=== PATIENT | female | born 2000 | race Caucasian/White ===

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

== ENCOUNTER 2019-04-06 04:38 | Emergency (ER) | payer BC ==
[2019-04-06] MEDS ORDERED: Albuterol/Ipratropium 3.0-0.5 MG/3 ML Neb Soln NEB ONE (04:59)
[2019-04-06] MEDS ORDERED: Albuterol/Ipratropium 3.0-0.5 MG/3 ML Neb Soln ONE (05:01)
--- NOTE | 2019-04-06 05:07 | EDM.PDOC ---
ED HPI GENERAL MEDICAL PROBLEM - General Chief Complaint: ENT Problem Stated Complaint: DIZZINESS Time Seen by Provider: 04/06/19 04:40 - History of Present Illness INITIAL COMMENTS - FREE TEXT/NARRATIVE: HISTORY AND PHYSICAL: History of present illness: The patient is a 18-year-old female with no significant past medical history but who does smoke cigarettes and presents with a one-week history of cough occasionally productive of phlegm sinus drainage and congestion without fever and right ear pain that started this evening. She says that at the beginning of her symptoms she did have a sore throat but that went away and the cough and congestion continued. She has not taken anything specific to dry out her sinuses but is been taking cold preps such as NyQuil DayQuil and Mucinex. She has been eating and drinking normally and has no abdominal pain vomiting or diarrhea and she denies . She says that she had a little bit of drainage from the right ear this evening and then had the pain and felt like her hearing was diminished. She has no headache or neck pain. The patient states that she did get her influenza shot this year Review of systems: As per history of present illness and below otherwise all systems reviewed and negative. Past medical history: As per history of present illness and as reviewed below otherwise noncontributory. Surgical history: As per history of present illness and as reviewed below otherwise noncontributory. Social history: No reported history of drug or alcohol abuse. Family history: As per history of present illness and as reviewed below otherwise noncontributory. Physical exam: General: Well-developed well-nourished female who is nontoxic and speaks with nasal quality to voice but she is not breathless hoarse or muffled. Vital signs are noted by me HEENT: Atraumatic, normocephalic, pupils reactive, negative for conjunctival pallor or scleral icterus, mucous membranes moist, throat clear, neck supple, nontender, trachea midline. TM on the left is within normal limits and there is no bilateral mastoid tenderness or erythema, the TM on the right is dulled but there is no bulging or erythema and there is external canal swelling and some debris. Nasal turbinates are boggy bilaterally and there is some minimal maxillary sinus tenderness on palpation but there is no cervical adenopathy or nuchal rigidity. Lungs: diminished breath sounds bilaterally and a small expiratory squeak is appreciated midfield bilaterally on expiration, no work of breathing or stridor. Breath sounds equal bilaterally, chest nontender. Heart: S1S2, regular and rhythm no overt murmurs Abdomen: Soft, nondistended, nontender. Pelvis: Deferred Genitourinary: Deferred. Rectal: Deferred. Extremities: Atraumatic, negative for cords or calf pain. Neurovascular unremarkable. Neuro: Awake, alert, oriented. Cranial nerves II through XII unremarkable. Cerebellum unremarkable. Motor and sensory unremarkable throughout. Exam nonfocal. Diagnostics: Influenza chest x-ray Therapeutics: DuoNeb prednisone, spacer and teaching After the DuoNeb the patient says she is feeling better and on reevaluation on my exam she is moving air much better in all lung hunter and now has expiratory wheezing diffusely but no work of breathing. I discussed with her that now that her airways are more open she is declaring herself as a bronchitis and she will need to be on an inhaler at home as well as prednisone. She states understanding Impression: Right otitis externa, bronchitis Definitive disposition and diagnosis as appropriate pending reevaluation and review of above. left ear Pain Score (Numeric/FACES): 10 - Related Data Allergies Allergy/AdvReac Type Severity Reaction Status Date / Time No Known Allergies Allergy Verified 04/06/19 04:43 Home Meds: Home Meds . [No Known Home Meds] 04/06/19 [History] Past Medical History - Past Health History Medical/Surgical History: Denies Medical/Surgical History HEENT History: Reports: None Cardiovascular History: Reports: None Respiratory History: Reports: None Gastrointestinal History: Reports: None Genitourinary History: Reports: None COLLEGE COUNSELOR History: Reports: , Other (See Below) Other COLLEGE COUNSELOR History: Chlamydia during this --treated Musculoskeletal History: Reports: None Neurological History: Reports: None Psychiatric History: Reports: None Endocrine/Metabolic History: Reports: Obesity/BMI 30+ Insulin Pump Model and Receiving 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: None Hematologic History: Reports: None Immunologic History: Reports: None Oncologic (Cancer) History: Reports: None Dermatologic History: Reports: None - Infectious Disease History Infectious Disease History: Reports: None - Past Surgical History Head Surgeries/Procedures: Reports: None HEENT Surgical History: Reports: Adenoidectomy, Tonsillectomy Cardiovascular Surgical History: Reports: None Respiratory Surgical History: Reports: None GI Surgical History: Reports: None Female Surgical History: Reports: None Neurological Surgical History: Reports: None Musculoskeletal Surgical History: Reports: None Oncologic Surgical History: Reports: None Dermatological Surgical History: Reports: None Social & Family History - Family History Family Medical History: Noncontributory Cardiac: Reports: Hypertension Endocrine/Metabolic: Reports: Diabetes, type II - Tobacco Use Smoking Status *Q: Current Some Day Smoker Years of Tobacco use: 1 Packs/Tins Daily: 0.5 - Caffeine Use Caffeine Use: Reports: Coffee - Recreational Drug Use Recreational Drug Use: No ED ROS GENERAL - Review of Systems Review Of Systems: Comprehensive ROS is negative, except as noted in HPI. ED EXAM, GENERAL - Physical Exam Exam: See Below (see Dictation) Course - Vital Signs Last Recorded V/S: Last Vital Signs Temp 36.0 C 04/06/19 04:43 Pulse 87 04/06/19 04:43 Resp 18 04/06/19 04:43 BP 134/79 04/06/19 04:43 Pulse Ox 98 04/06/19 04:43 - Orders/Labs/Meds Orders: Active Orders 24 hr Category Date Time Status Communication Order [RC] STAT Care 04/06/19 05:56 Active RT Aerosol Therapy [RC] ASDIRECTED Care 04/06/19 05:00 Active INFLUENZA A+B AG SCREEN [RM] Stat Lab 04/06/19 05:00 Received Meds: Medications Discontinued Medications Generic Name Dose Route Start Last Admin Trade Name Freq PRN Reason Stop Dose Admin Albuterol/Ipratropium 3 ml 04/06/19 04:59 04/06/19 05:05 Duoneb 3.0-0.5 Mg/3 Ml NEB 04/06/19 05:00 3 ml ONETIME ONE Administration Albuterol/Ipratropium Confirm 04/06/19 05:01 04/06/19 06:01 Duoneb 3.0-0.5 Mg/3 Ml Administered 04/06/19 05:02 Not Given Dose 3 ml .ROUTE .STK-MED ONE Prednisone 20 mg 04/06/19 05:57 04/06/19 06:02 Prednisone PO 04/06/19 05:58 20 mg ONETIME ONE Administration Departure - Departure Time of Disposition: 06:07 Disposition: Home, Self-Care 01 Condition: Good Clinical Impression: Otitis externa Qualifiers: Otitis externa type: unspecified type Chronicity: acute Laterality: right Qualified Code(s): H60.501 - Unspecified acute noninfective otitis externa, right ear Acute bronchitis Qualifiers: Bronchitis organism: unspecified organism Qualified Code(s): J20.9 - Acute bronchitis, unspecified - Discharge Information Referrals: PCP,None [Primary Care Provider] - Forms: ED Department Discharge Additional Instructions: The following information is given to patients seen in the emergency department who are being discharged to home. This information is to outline your options for follow-up care. We provide all patients seen in our emergency department with a follow-up referral. The need for follow-up, as well as the timing and circumstances, are variable depending upon the specifics of your emergency department visit. If you don't have a primary care physician on staff, we will provide you with a referral. We always advise you to contact your personal physician following an emergency department visit to inform them of the circumstance of the visit and for follow-up with them and/or the need for any referrals to a consulting specialist. The emergency department will also refer you to a specialist when appropriate. This referral assures that you have the opportunity for followup care with a specialist. All of these measure are taken in an effort to provide you with optimal care, which includes your followup. Under all circumstances we always encourage you to contact your private physician who remains a resource for coordinating your care. When calling for followup care, please make the office aware that this follow-up is from your recent emergency room visit. If for any reason you are refused follow-up, please contact the [facility] emergency department at and ask to speak to the emergency department charge nurse. [facility] Primary care- Internal Medicine and Family [address] [address] Push your hydration and reduce and/or quit tobacco use. Please use over-the- counter medications for sinus congestion and fluid which could include Zyrtec Delores Zyrtec all [id number]. Use Tylenol or ibuprofen for pain or fever management. Please use the eardrops as prescribed to you, Cortisporin otic, and do not place anything into ears including Q-tips until you are finished with the treatment course as the outer ear is very fragile in this manipulation could cause bleeding or further trauma. Use your inhaler with the spacer you have been given here in the ED 1 to 2 puffs every 6 hours for the next 24 hours and then every 6 hours as needed. Take prednisone as prescribed. Reduce and/or quit tobacco use please call and schedule a follow-up appointment in the clinic with 1 of our providers for reevaluation and further care and return to ER as needed and as discussed Sepsis Event Note - Evaluation Sepsis Screening Result: No Definite Risk - Focused Exam Vital Signs: Vital Signs Temp Pulse Resp BP Pulse Ox 04/06/19 04:43 36.0 C 87 18 134/79 98 Date Exam was Performed: 04/06/19 Time Exam was Performed: 06:07 - My Orders Last 24 Hours: My Active Orders 04/06/19 05:00 RT Aerosol Therapy [RC] ASDIRECTED INFLUENZA A+B AG SCREEN [RM] Stat 04/06/19 05:56 Communication Order [RC] STAT - Assessment/Plan Last 24 Hours: My Active Orders 04/06/19 05:00 RT Aerosol Therapy [RC] ASDIRECTED INFLUENZA A+B AG SCREEN [RM] Stat 04/06/19 05:56 Communication Order [RC] STAT
--- NOTE | 2019-04-06 05:48 | CR ---
Indication: Shortness of breath Technique: Chest 2 views Comparison: None Findings/Impression: Cardiovascular and mediastinum: Heart size and vasculature are normal in caliber and appearance. Mediastinum is within normal limits. Lungs and pleural spaces: Lungs are clear. No sign of infiltrate or mass. No sign of pleural effusion. No pneumothorax. Bones and soft tissues: No significant findings. Dictated by Yasmani Bethea MD @ 04/06/2019 5:46:33 AM Dictated by: Yasmani Bethea MD @ 04/06/2019 05:46:36 (Electronically Signed)
[2019-04-06] MEDS ORDERED: predniSONE 20 MG Tab PO ONE (05:57)
== END 2019-04-06 06:21 | disposition home or self-care (01) ==
LOC: MW.ED 04:38
DX: J20.9 Acute bronchitis, unspecified (principal); H60.501 Unspecified acute noninfective otitis externa, right ear; E66.9 Obesity, unspecified; F17.210 Nicotine dependence, cigarettes, uncomplicated; Z98.890 Other specified postprocedural states
CPT/HCPCS: 71046; 87804; 94640; 99284; A9270; 99283; J7620-GY

== ENCOUNTER 2019-08-29 18:44 | Emergency (ER) | payer BC, OTHER ==
--- NOTE | 2019-08-29 19:43 | EDM.PDOC ---
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 Pain is dull, aching, mild, worsening, with no exacerbating or relieving factors. Associated with pelvic cramps. She denies vaginal bleeding, fever, chills, vomiting, diarrhea, dysuria, cough, changes in appetite, abdominal pain otherwise. She ees Idania Porras for OB. ROS: A 10-point review of systems, other than pertinent positives and negatives as stated per HPI, is otherwise negative PHYSICAL EXAM General: AOx4, GCS = 15, No distress HEENT: dry mucous membrane Neck: supple, no meningismus, no Kernig or Brudzinski Cardiac: S1S2 RRR Respiratory: CTAB, no crackles or rales, no wheezing Abdomen: Soft, nontender, no rebound or guarding, nondistended, no pulsatile mass. Trace tenderness to bilateral pelvic. Back: CVAT Bilateral Musculoskeletal: NVI distally, no deformity Neuro: No focal deficits. MEDICAL DECISION MAKING: I reviewed the patients past medical records, lab and radiographic findings. I discussed the case with family members. My differential diagnosis included: UTI, cystitis. 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 SUPERVISOR History: LMP 05/16/2019 Musculoskeletal History: Reports: None Neurological History: Reports: None Psychiatric History: Reports: None Endocrine/Metabolic History: Reports: Obesity/BMI 30+ Insulin Pump Model and Hydraulic Rockbreaker Operator: None Hematologic History: Reports: None Immunologic History: Reports: None Oncologic (Cancer) History: Reports: None Dermatologic History: Reports: None - Infectious Disease History Infectious Disease History: Reports: None - Past Surgical History Head Surgeries/Procedures: Reports: None HEENT Surgical History: Reports: Adenoidectomy, Tonsillectomy Cardiovascular Surgical History: Reports: None Respiratory Surgical History: Reports: None GI Surgical History: Reports: None Female Surgical History: Reports: None Neurological Surgical History: Reports: None Musculoskeletal Surgical History: Reports: None Oncologic Surgical History: Reports: None Dermatological Surgical History: Reports: None Social & Family History - Family History Family Medical History: Noncontributory Cardiac: Reports: Hypertension Endocrine/Metabolic: Reports: Diabetes, type II - Tobacco Use Smoking Status *Q: Current Every Day Smoker Years of Tobacco use: 1 Packs/Tins Daily: 0.3 - Caffeine Use Caffeine Use: Reports: Coffee - Recreational Drug Use Recreational Drug Use: No ED ROS GENERAL - Review of Systems Review Of Systems: See Below (see dictation) ED EXAM, GENERAL - Physical Exam Exam: See Below (see dictation) Course - Vital Signs Last Recorded V/S: Last Vital Signs Temp 98.1 F 08/29/19 19:07 Pulse 98 08/29/19 19:07 Resp 16 08/29/19 19:07 BP 120/71 08/29/19 19:07 Pulse Ox 100 08/29/19 19:07 - Orders/Labs/Meds Orders: Active Orders 24 hr Category Date Time Status External Monitoring [ Heart Rate] [RC] Click Care 08/29/19 19:27 Active to Edit Labs: Laboratory Tests 08/29/19 Range/Units 19:44 Urine Color YELLOW Urine Appearance SLT CLOUDY Urine pH 7.0 (5.0-8.0) Ur Specific [place] <= 1.005 (1.001-1.035) Urine Protein NEGATIVE (NEGATIVE) mg/dL Urine Glucose (UA) NEGATIVE (NEGATIVE) mg/dL Urine Ketones NEGATIVE (NEGATIVE) mg/dL Urine Occult Blood NEGATIVE (NEGATIVE) Urine Nitrite NEGATIVE (NEGATIVE) Urine Bilirubin NEGATIVE (NEGATIVE) Urine Urobilinogen 0.2 (<2.0) EU/dL Ur Leukocyte Esterase TRACE H (NEGATIVE) Urine RBC 0-1 (0-2/HPF) Urine WBC 0-3 (0-5/HPF) Ur Epithelial Cells MODERATE (NONE-FEW) Urine Bacteria RARE (NEGATIVE) - Re-Assessments/Exams Free Text/Narrative Re-Assessment/Exam: 08/29/19 21:31 After treatments and a prolonged observation period in the ER, the patient improved clinically and is stable for discharge. I performed a repeat examination and the patient has not demonstrated any new abnormal findings. Patient exhibits normal vital signs and has exhibited a normal gait. I advised the patient to return to the ER for reevaluation if symptoms worsened, and to follow up with Idania Vega within 2-3 days. Departure - Departure Time of Disposition: 21:31 Disposition: Home, Self-Care 01 Condition: Good Clinical Impression: UTI (urinary tract infection) Qualifiers: Urinary tract infection type: acute cystitis Hematuria presence: with hematuria Qualified Code(s): N30.01 - Acute cystitis with hematuria - Discharge Information *PRESCRIPTION DRUG MONITORING PROGRAM REVIEWED*: Not Applicable *COPY OF PRESCRIPTION DRUG MONITORING REPORT IN PATIENT CORNELIO: Not Applicable Prescriptions: cephALEXin [Keflex] 500 mg PO BID #20 cap Instructions: and Urinary Tract Infection Referrals: PCP,None [Primary Care Provider] - Forms: ED Department Discharge Additional Instructions: The following information is given to patients seen in the emergency department who are being discharged to home. This information is to outline your options for follow-up care. We provide all patients seen in our emergency department with a follow-up referral. The need for follow-up, as well as the timing and circumstances, are variable depending upon the specifics of your emergency department visit. If you don't have a primary care physician on staff, we will provide you with a referral. We always advise you to contact your personal physician following an emergency department visit to inform them of the circumstance of the visit and for follow-up with them and/or the need for any referrals to a consulting specialist. The emergency department will also refer you to a specialist when appropriate. This referral assures that you have the opportunity for follow-up care with a specialist. All of these measure are taken in an effort to provide you with optimal care, which includes your follow-up. Under all circumstances we always encourage you to contact your private physician who remains a resource for coordinating your care. When calling for follow-up care, please make the office aware that this follow-up is from your recent emergency room visit. If for any reason you are refused follow-up, please contact the [facility] Emergency Department at and asked to speak to the emergency department charge nurse. [employer]ILIARIES SUPERVIS[employer] [facility] [address] [place] [id number] Sepsis Event Note (ED) - Evaluation Sepsis Screening Result: No Definite Risk - Focused Exam Vital Signs: Vital Signs Temp Pulse Resp BP Pulse Ox 08/29/19 19:07 98.1 F 98 16 120/71 100 - My Orders Last 24 Hours: My Active Orders 08/29/19 19:27 External Monitoring [ Heart Rate] [RC] Click to Edit - Assessment/Plan Last 24 Hours: My Active Orders 08/29/19 19:27 External Monitoring [ Heart Rate] [RC] Click to Edit
== END 2019-08-29 21:46 | disposition home or self-care (01) ==
LOC: MW.ED 18:44
DX: O23.12 Infections of bladder in pregnancy, second trimester (principal); O99.332 Smoking (tobacco) complicating pregnancy, second trimester; F17.210 Nicotine dependence, cigarettes, uncomplicated; O99.212 Obesity complicating pregnancy, second trimester; E66.9 Obesity, unspecified; Z68.28 Body mass index [BMI] 28.0-28.9, adult; Z3A.15 15 weeks gestation of pregnancy
CPT/HCPCS: 81001; 99283

== ENCOUNTER 2020-02-11 18:21 | Inpatient (IN) | payer BC, MEDICAID ==
[2020-02-11] MEDS ORDERED: Sodium Chloride 0.9% 2.5 ML Syringe FLUSH PRN (18:33)
[2020-02-11] MEDS ORDERED: Carboprost Tromethamine 250 MCG/1 ML Amp IM PRN (18:33)
[2020-02-11] MEDS ORDERED: Misoprostol 200 MCG Tab PO PRN (18:33)
[2020-02-11] MEDS ORDERED: Butorphanol 1 MG/ML SDV IVPUSH PRN (18:33)
[2020-02-11] MEDS ORDERED: Tranexamic Acid 1,000 MG in Sodium Chloride 0.9% 100 ML IV PRN (18:33)
[2020-02-11] MEDS ORDERED: Sodium Chloride 0.9% 10 ML Syringe FLUSH PRN (18:33)
[2020-02-11] MEDS ORDERED: Water For Irrigation,Sterile 1,000 ML Container IRR PRN (18:33)
[2020-02-11] MEDS ORDERED: Sodium Chloride 0.9% 10 ML SDV IV PRN (18:33)
[2020-02-11] MEDS ORDERED: Methylergonovine 0.2 MG/1 ML Amp IM PRN (18:33)
[2020-02-11] MEDS ORDERED: Nalbuphine 10 MG/1 ML Vial IVPUSH PRN (18:33)
[2020-02-11] MEDS ORDERED: Lidocaine 1% 50 ML MDV INJECT PRN (18:33)
[2020-02-11] MEDS ORDERED: Oxytocin/0.9 % Sodium Chloride 30 UNIT/500 ML BAG IV SCH (18:45)
[2020-02-11] MEDS ORDERED: Ampicillin 2 GM in Sodium Chloride 0.9% 100 ML IV ONE (19:00)
--- NOTE | 2020-02-11 19:06 | PCM.LDHP ---
L&D History of Present Illness - General Date of Service: 02/11/20 Admit Problem/Dx: Patient Status Order with Admit Dx/Problem 02/11/20 18:33 Patient Status [ADT] Routine Admission Diagnosis/Problem Admission Diagnosis/Problem 02/11/20 19:01 presenting to L&D at 38 5/7 weeks (NICKIE: 02/20/20) reporting regular uterine contractions; O+, Rubella immune, GBS positive (NKDA); SVE 5cm/80%/-1 per nurse report; vertex presentation by George'louise 02/11/20 19:07 Source of Information: Patient History Limitations: Reports: No Limitations - Related Data Allergies/Adverse Reactions: Allergies Allergy/AdvReac Type Severity Reaction Status Date / Time No Known Allergies Allergy Verified 04/06/19 04:43 Past Medical History - Past Health History Medical/Surgical History: Denies Medical/Surgical History HEENT History: Reports: None Cardiovascular History: Reports: None Respiratory History: Reports: None Gastrointestinal History: Reports: None Genitourinary History: Reports: None CLINICAL EDITOR History: Reports: Other OB/BYN History: LMP 05/16/2019 Musculoskeletal History: Reports: None Neurological History: Reports: None Psychiatric History: Reports: None Endocrine/Metabolic History: Reports: Obesity/BMI 30+ Insulin Pump Model and Weed Inspector: None Hematologic History: Reports: None Immunologic History: Reports: None Oncologic (Cancer) History: Reports: None Dermatologic History: Reports: None - Infectious Disease History Infectious Disease History: Reports: None - Past Surgical History Head Surgeries/Procedures: Reports: None HEENT Surgical History: Reports: Adenoidectomy, Tonsillectomy Cardiovascular Surgical History: Reports: None Respiratory Surgical History: Reports: None GI Surgical History: Reports: None Female Surgical History: Reports: None Neurological Surgical History: Reports: None Musculoskeletal Surgical History: Reports: None Oncologic Surgical History: Reports: None Dermatological Surgical History: Reports: None Social & Family History - Family History Family Medical History: No Pertinent Family History Cardiac: Reports: Hypertension Endocrine/Metabolic: Reports: Diabetes, type II - Caffeine Use Caffeine Use: Reports: Coffee H&P Review of Systems - Review of Systems: Review Of Systems: See Below General: Reports: No Symptoms HEENT: Reports: No Symptoms Pulmonary: Reports: No Symptoms Cardiovascular: Reports: No Symptoms Gastrointestinal: Reports: No Symptoms Genitourinary: Reports: No Symptoms Musculoskeletal: Reports: No Symptoms Skin: Reports: No Symptoms Psychiatric: Reports: No Symptoms Neurological: Reports: No Symptoms Hematologic/Lymphatic: Reports: No Symptoms Immunologic: Reports: No Symptoms L&D Exam - Exam Exam: See Below - Vital Signs Weight: 198 lb - OB Specific Movement: Active Heart Tones: Present Heart Rate (FHR) Variability: Moderate (6-25 bmp) Presentation: Vertex - Foley Score Foley Score Cervix Position: Midposition Foley Score Consistency: Soft Foley Score Effacement: >80% Foley Score Dilation: > 5 cm Foley Score Infant's Station: -1 ,0 Foley Score Total: 11 - Exam General: Alert, Oriented, Cooperative Lungs: Normal Respiratory Effort Cardiovascular: Regular Rate, Regular Rhythm GI/Abdominal Exam: Soft, Non-Tender Rectal Exam: Deferred Genitourinary: Deferred Back Exam: Normal Inspection, Full Range of Motion Extremities: Normal Inspection, Normal Range of Motion, Non-Tender, Normal Ca pillary Refill Skin: Warm, Dry, Intact Psychiatric: Alert, Normal Affect, Normal Mood - Problem List (1) Supervision of normal IUP (intrauterine ) in multigravida SNOMED Code(s): 055353488, 863694925, [id number] ICD Code: Z34.80 - ENCOUNTER FOR SUPRVSN OF NORMAL , UNSP TRIMESTER Status: Acute Priority: High Current Visit: Yes Qualifiers: Trimester: third trimester Qualified Code(s): Z34.83 - Encounter for supervision of other normal , third trimester Problem List Initiated/Reviewed/Updated: Yes Orders Last 24hrs: Active Orders 24 hr Category Date Time Status Patient Status [ADT] Routine ADT 02/11/20 18:33 Active Heart Tones [RC] CONTINUOUS Care 02/11/20 18:33 Active Non Stress Test [RC] PER UNIT ROUTINE Care 02/11/20 18:33 Active May Shower [RC] ASDIRECTED Care 02/11/20 18:33 Active Notify Provider [RC] PRN Care 02/11/20 18:33 Active Up ad Amber [RC] ASDIRECTED Care 02/11/20 18:33 Active Vaginal Exam [RC] PRN Care 02/11/20 18:33 Active Vital Signs [RC] PER UNIT ROUTINE Care 02/11/20 18:33 Active CBC W/O DIFF,HEMOGRAM [HEME] Routine Lab 02/11/20 18:33 Ordered RPR (SYPHILIS SERO) W/ RFLX [REF] Routine Lab 02/11/20 18:33 Ordered TYPE AND SCREEN [BBK] Routine Lab 02/11/20 18:33 Ordered Ampicillin 1 gm Med 02/11/20 23:00 Active Sodium Chloride 0.9% [Normal Saline] 50 ml IV Q4H Ampicillin 2 gm Med 02/11/20 19:00 Active Sodium Chloride 0.9% [Normal Saline] 100 ml IV ONETIME Butorphanol [Stadol] Med 02/11/20 18:33 Active 1 mg IVPUSH Q1H PRN Carboprost Tromethamine [Hemabate DS] Med 02/11/20 18:33 Active 250 mcg IM ASDIRECTED PRN Lactated Ringers [Ringers, Lactated] 1,000 ml Med 02/11/20 18:45 Active IV ASDIRECTED Lidocaine 1% [Xylocaine 1%] Med 02/11/20 18:33 Active 50 ml INJECT ONETIME PRN Methylergonovine [Methergine] Med 02/11/20 18:33 Active 0.2 mg IM ASDIRECTED PRN Nalbuphine [Nubain] Med 02/11/20 18:33 Active 10 mg IVPUSH Q1H PRN Oxytocin/0.9 % Sodium Chloride [Oxytocin 30 Unit/500 ML Med 02/11/20 18:45 Active -NS] 30 unit in 500 ml IV TITRATE Sodium Chloride 0.9% [Normal Saline] Med 02/11/20 18:33 Active 10 ml IV ASDIRECTED PRN Sodium Chloride 0.9% [Saline Flush] Med 02/11/20 18:33 Active 10 ml FLUSH ASDIRECTED PRN Sodium Chloride 0.9% [Saline Flush] Med 02/11/20 18:33 Active 2.5 ml FLUSH ASDIRECTED PRN Tranexamic Acid [Cyklokapron] 1,000 mg Med 02/11/20 18:33 Active Sodium Chloride 0.9% [Normal Saline] 100 ml IV ONETIME Water For Irrigation,Sterile [Sterile Water for Med 02/11/20 18:33 Active Irrigation] 1,000 ml IRR ASDIRECTED PRN miSOPROStoL [Cytotec] Med 02/11/20 18:33 Active 200 mcg PO ONETIME PRN Scalp Electrode [WOMSER] Per Unit Routine Oth 02/11/20 18:33 Ordered Peripheral IV Insertion Adult [OM.PC] Routine Oth 02/11/20 18:33 Ordered Resuscitation Status Routine Resus Stat 02/11/20 18:33 Ordered Medication Orders Butorphanol Tartrate (Stadol) 1 mg IVPUSH Q1H PRN PRN Reason: Pain Carboprost Tromethamine (Hemabate Ds) 250 mcg IM ASDIRECTED PRN PRN Reason: Post Hemorrhage Oxytocin/Sodium Chloride (Oxytocin 30 Unit/500 Ml-Ns) 30 unit in 500 mls @ 999 mls/hr IV TITRATE PATRIA Tranexamic Acid 1,000 mg/ (Sodium Chloride) 110 mls @ 660 mls/hr IV ONETIME PRN PRN Reason: Bleeding Ampicillin Sodium 2 gm/ Sodium (Chloride) 100 mls @ 200 mls/hr IV ONETIME ONE Stop: 02/11/20 19:29 Ampicillin Sodium 1 gm/ Sodium (Chloride) 50 mls @ 100 mls/hr IV Q4H PATRIA Lactated Ringer's (Ringers, Lactated) 1,000 mls @ 150 mls/hr IV ASDIRECTED PATRIA Lidocaine HCl (Xylocaine 1%) 50 ml INJECT ONETIME PRN PRN Reason: Laceration repair Methylergonovine Maleate (Methergine) 0.2 mg IM ASDIRECTED PRN PRN Reason: Post Hemorrhage Misoprostol (Cytotec) 200 mcg PO ONETIME PRN PRN Reason: Post Hemorrhage Nalbuphine HCl (Nubain) 10 mg IVPUSH Q1H PRN PRN Reason: Pain (severe 7-10) Sodium Chloride (Saline Flush) 10 ml FLUSH ASDIRECTED PRN PRN Reason: Keep Vein Open Sodium Chloride (Saline Flush) 2.5 ml FLUSH ASDIRECTED PRN PRN Reason: Keep Vein Open Sodium Chloride (Normal Saline) 10 ml IV ASDIRECTED PRN PRN Reason: IV Use Sterile Water (Sterile Water For Irrigation) 1,000 ml IRR ASDIRECTED PRN PRN Reason: delivery Assessment/Plan Comment:: Admit A: presenting to L&D at 38 5/7 weeks (NICKIE: 02/20/20) reporting regular uterine contractions; O+, Rubella immune, GBS positive (NKDA); SVE 5cm/80%/-1 per nurse report; vertex presentation by George'louise P: Anticipate ; epidural PRN; Dr. Barone updated
[2020-02-11] MEDS: Lactated Ringers 1,000 ML IV SCH ×3 (19:23→21:16)
[2020-02-11] MEDS ORDERED: Ropivacaine HCl/PF 100 ML ONE (20:06)
[2020-02-11] MEDS ORDERED: fentaNYL 100 MCG/2 ML SDV ONE (20:06)
--- NOTE | 2020-02-11 20:27 | PCM.PREANE ---
Preanesthetic Assessment - Anesthesia/Transfusion/Family Hx Anesthesia History: Prior Anesthesia Without Reaction Family History of Anesthesia Reaction: No Transfusion History: No Prior Transfusion(s) - Physical Assessment NPO Status Date: 02/11/20 NPO Status Time: 12:00 Height: 1.68 m Weight: 89.811 kg ASA Class: 2 - Lab Values: Laboratory Last Values WBC 12.98 K/uL (4.0-11.0) H 02/11/20 18:45 RBC 4.24 M/uL (4.30-5.90) L 02/11/20 18:45 Hgb 11.4 g/dL (12.0-16.0) L 02/11/20 18:45 Hct 36.4 % (36.0-46.0) 02/11/20 18:45 MCV 85.8 fL (80.0-98.0) 02/11/20 18:45 MCH 26.9 pg (27.0-32.0) L 02/11/20 18:45 MCHC 31.3 g/dL (31.0-37.0) 02/11/20 18:45 RDW Std Deviation 42.1 fl (28.0-62.0) 02/11/20 18:45 RDW Coeff of Jose Miguel 14 % (11.0-15.0) 02/11/20 18:45 Plt Count 360 K/uL (150-400) 02/11/20 18:45 MPV 10.30 fL (7.40-12.00) 02/11/20 18:45 Nucleated RBC % 0.0 /100WBC 02/11/20 18:45 Nucleated RBCs # 0 K/uL 02/11/20 18:45 SARS-CoV-2 RNA (CHANTE) NEGATIVE (NEGATIVE) 02/11/20 18:52 - Allergies Allergies/Adverse Reactions: Allergies Allergy/AdvReac Type Severity Reaction Status Date / Time No Known Allergies Allergy Verified 04/06/19 04:43 - Acknowledgements Anesthesia Type Planned: Epidural Pt an Appropriate Candidate for the Planned Anesthesia: Yes Alternatives and Risks of Anesthesia Discussed w Pt/Guardian: Yes Pt/Guardian Understands and Agrees with Anesthesia Plan: Yes PreAnesthesia Questionnaire - Past Health History Medical/Surgical History: Denies Medical/Surgical History HEENT History: Reports: None Cardiovascular History: Reports: None Respiratory History: Reports: None Gastrointestinal History: Reports: None Genitourinary History: Reports: None EVENTS AND PROMOTIONS ASSISTANT History: Reports: Other OB/BYN History: LMP 05/16/2019 Musculoskeletal History: Reports: None Neurological History: Reports: None Psychiatric History: Reports: None Endocrine/Metabolic History: Reports: Obesity/BMI 30+ Hematologic History: Reports: None Immunologic History: Reports: None Oncologic (Cancer) History: Reports: None Dermatologic History: Reports: None - Infectious Disease History Infectious Disease History: Reports: None - Past Surgical History Head Surgeries/Procedures: Reports: None HEENT Surgical History: Reports: Adenoidectomy, Tonsillectomy Cardiovascular Surgical History: Reports: None Respiratory Surgical History: Reports: None GI Surgical History: Reports: None Female Surgical History: Reports: None Endocrine Surgical History: Reports: None Neurological Surgical History: Reports: None Musculoskeletal Surgical History: Reports: None Oncologic Surgical History: Reports: None Dermatological Surgical History: Reports: None - SUBSTANCE USE Tobacco Use Status *Q: Never Tobacco User Second Hand Smoke Exposure: No Recreational Drug Use History: No - CURRENT (IN HOUSE) MEDS Current Meds: Current Medications Butorphanol Tartrate (Stadol) 1 mg IVPUSH Q1H PRN PRN Reason: Pain Last Admin: 02/11/20 19:27 Dose: 1 mg Documented by: Carboprost Tromethamine (Hemabate Ds) 250 mcg IM ASDIRECTED PRN PRN Reason: Post Hemorrhage Oxytocin/Sodium Chloride (Oxytocin 30 Unit/500 Ml-Ns) 30 unit in 500 mls @ 999 mls/hr IV TITRATE [facility] Tranexamic Acid 1,000 mg/ (Sodium Chloride) 110 mls @ 660 mls/hr IV ONETIME PRN PRN Reason: Bleeding Ampicillin Sodium 1 gm/ Sodium (Chloride) 50 mls @ 100 mls/hr IV Q4H [facility] Lactated Ringer's (Ringers, Lactated) 1,000 mls @ 150 mls/hr IV ASDIRECTED PATRIA Last Admin: 02/11/20 20:09 Dose: 500 mls/hr Documented by: Lidocaine HCl (Xylocaine 1%) 50 ml INJECT ONETIME PRN PRN Reason: Laceration repair Methylergonovine Maleate (Methergine) 0.2 mg IM ASDIRECTED PRN PRN Reason: Post Hemorrhage Misoprostol (Cytotec) 200 mcg PO ONETIME PRN PRN Reason: Post Hemorrhage Nalbuphine HCl (Nubain) 10 mg IVPUSH Q1H PRN PRN Reason: Pain (severe 7-10) Sodium Chloride (Saline Flush) 10 ml FLUSH ASDIRECTED PRN PRN Reason: Keep Vein Open Sodium Chloride (Saline Flush) 2.5 ml FLUSH ASDIRECTED PRN PRN Reason: Keep Vein Open Sodium Chloride (Normal Saline) 10 ml IV ASDIRECTED PRN PRN Reason: IV Use Sterile Water (Sterile Water For Irrigation) 1,000 ml IRR ASDIRECTED PRN PRN Reason: delivery Discontinued Medications Fentanyl (Sublimaze) Confirm Administered Dose 100 mcg .ROUTE .STK-MED ONE Stop: 02/11/20 20:07 Ampicillin Sodium 2 gm/ Sodium (Chloride) 100 mls @ 200 mls/hr IV ONETIME ONE Stop: 02/11/20 19:29 Last Admin: 02/11/20 19:28 Dose: 200 mls/hr Documented by: Ropivacaine (Naropin 0.2%) Confirm Administered Dose 100 mls @ as directed .ROUTE .STK-MED ONE Stop: 02/11/20 20:07
--- NOTE | 2020-02-11 20:30 | PCM.PRNOTE ---
- Free Text/Narrative Note: Anes Note Patient requests epidural for L&D. Sitting position, level L3--L4 midline approach. Sterile technique. Chloraprep scrub to lumbar area. Sterile fenestrated drape applied. Epidural space easily achieved single attempt with ease using ALMA DELIA technique. ALMA DELIA at 4 cm. Cath threaded 6 cm with ease. Cath secured at skin using sterile clear adhesive dressing. Test 2014 3 cc 1.5% lido with epi negative. 2017 Load 10 cc 0.2% ropivicaine with 1 mcg cc fentanyl in slow divided doses. 2024 Pump started with 90 cc same solution. Rate is 8 cc hr with 6 cc q 20 min prn bolus. Javed well. Time with patient [id number] Monico Jean CRNA
[2020-02-11] MEDS ORDERED: Ondansetron 4 MG/2 ML SDV IVPUSH PRN (22:22)
[2020-02-11] MEDS ORDERED: Ampicillin 1 GM in Sodium Chloride 0.9% 50 ML IV SCH (23:00)
[2020-02-12] MEDS ORDERED: Lanolin 100% Cream 7 GM Tube TOP PRN (03:32)
[2020-02-12] MEDS ORDERED: Benzocaine/Menthol 20%-0.5% Spray 78 GM Cannister TOP PRN (03:32)
[2020-02-12] MEDS ORDERED: Acetaminophen 500 MG Tab PO PRN ×2 (03:32)
[2020-02-12] MEDS ORDERED: Docusate Sodium 100 MG Cap PO PRN (03:32)
[2020-02-12] MEDS ORDERED: Witch Hazel Medicated Pads 40/Jar TOP PRN (03:32)
[2020-02-12] MEDS ORDERED: Bisacodyl 10 MG Supp RECTAL PRN (03:32)
[2020-02-12] MEDS ORDERED: Ibuprofen 800 MG Tab PO PRN (03:32)
[2020-02-12] MEDS ORDERED: Ibuprofen 400 MG Tab PO PRN (03:32)
[2020-02-12] MEDS ORDERED: oxyCODONE 5 MG Tab PO PRN (03:32)
--- NOTE | 2020-02-12 03:44 | PCM.DEL ---
L & D Note - General Info Date of Service: 02/12/20 Mother's Due Date: 02/20/20 - Delivery Note Labor: Spontaneous Delivery Outcome: Livebirth Infant Delivery Method: Spontaneous Vaginal Delivery-Single Presentation: Vertex Nuchal Cord: None Anesthesia Type: Epidural Episiotomy Type: None Laceration: None Cord: 3 Vessels Estimated Blood Loss: 300 Score 1 min: 8 Score 5 min: 9 Second Stage Interventions: Reports: Second Nurse Assessed Progress of Descent, Second Nurse Reviewed Contraction Pattern, Second Nurse Reviewed Heart Ton es, Encouragement Given, Pushing Effectively, Pushing, Stirrups/Leg Supports Delivery Comments (Free Text/Narrative):: viable male; epidural for pain relief; head delivered with good pushing, shoulders and body followed easily after; baby to mom's abdomen [id number] for assessment; APGARs 8/9; cord doubly clamped following cessation of pulsing, cut by grandmother of baby; baby to warmer for weight and measurements; weight: 7 lb 9 oz (3430 grams); placenta delivered grossly intact, barnett, 3VC; EBL 300 mL; perineum intact; pitocin to IVF; baby back to mom [id number]; mom and baby left in stable condition with nurse at bedside for assessment - General Info Date of Service: 02/12/20 Admission Dx/Problem (Free Text): Patient Status Order with Admit Dx/Problem 02/11/20 18:33 Patient Status [ADT] Routine Admission Diagnosis/Problem Admission Diagnosis/Problem 02/11/20 19:01 presenting to L&D at 38 5/7 weeks (NICKIE: 02/20/20) reporting regular uterine contractions; O+, Rubella immune, GBS positive (NKDA); SVE 5cm/80%/-1 per nurse report; vertex presentation by George'louise 02/11/20 19:07 Functional Status: Reports: Pain Controlled - Review of Systems General: Reports: No Symptoms HEENT: Reports: No Symptoms Pulmonary: Reports: No Symptoms Cardiovascular: Reports: No Symptoms Gastrointestinal: Reports: No Symptoms Genitourinary: Reports: No Symptoms Musculoskeletal: Reports: No Symptoms Skin: Reports: No Symptoms Neurological: Reports: No Symptoms Psychiatric: Reports: No Symptoms - Patient Data Weight - Most Recent: 198 lb Lab Results Last 24 Hours: Laboratory Results - last 24 hr 02/11/20 02/11/20 02/11/20 Range/Units 18:45 18:45 18:52 WBC 12.98 H (4.0-11.0) K/uL RBC 4.24 L (4.30-5.90) M/uL Hgb 11.4 L (12.0-16.0) g/dL Hct 36.4 (36.0-46.0) % MCV 85.8 (80.0-98.0) fL MCH 26.9 L (27.0-32.0) pg MCHC 31.3 (31.0-37.0) g/dL RDW Std Deviation 42.1 (28.0-62.0) fl RDW Coeff of Jose Miguel 14 (11.0-15.0) % Plt Count 360 (150-400) K/uL MPV 10.30 (7.40-12.00) fL Nucleated RBC % 0.0 /100WBC Nucleated RBCs # 0 K/uL SARS-CoV-2 RNA (CHANTE) NEGATIVE (NEGATIVE) Blood Type O POSITIVE Antibody Screen NEGATIVE Med Orders - Current: Current Medications Discontinued Medications Butorphanol Tartrate (Stadol) 1 mg IVPUSH Q1H PRN PRN Reason: Pain Last Admin: 02/11/20 19:27 Dose: 1 mg Documented by: Carboprost Tromethamine (Hemabate Ds) 250 mcg IM ASDIRECTED PRN PRN Reason: Post Hemorrhage Fentanyl (Sublimaze) Confirm Administered Dose 100 mcg .ROUTE .STK-MED ONE Stop: 02/11/20 20:07 Oxytocin/Sodium Chloride (Oxytocin 30 Unit/500 Ml-Ns) 30 unit in 500 mls @ 999 mls/hr IV TITRATE PATRIA Last Admin: 02/12/20 03:20 Dose: 999 mls/hr Documented by: Tranexamic Acid 1,000 mg/ (Sodium Chloride) 110 mls @ 660 mls/hr IV ONETIME PRN PRN Reason: Bleeding Ampicillin Sodium 2 gm/ Sodium (Chloride) 100 mls @ 200 mls/hr IV ONETIME ONE Stop: 02/11/20 19:29 Last Admin: 02/11/20 19:28 Dose: 200 mls/hr Documented by: Ampicillin Sodium 1 gm/ Sodium (Chloride) 50 mls @ 100 mls/hr IV Q4H PATRIA Last Admin: 02/12/20 00:05 Dose: 100 mls/hr Documented by: Lactated Ringer's (Ringers, Lactated) 1,000 mls @ 150 mls/hr IV ASDIRECTED PATRIA Last Admin: 02/11/20 21:16 Dose: 125 mls/hr Documented by: Ropivacaine (Naropin 0.2%) Confirm Administered Dose 100 mls @ as directed .ROUTE .K-MED ONE Stop: 02/11/20 20:07 Lidocaine HCl (Xylocaine 1%) 50 ml INJECT ONETIME PRN PRN Reason: Laceration repair Methylergonovine Maleate (Methergine) 0.2 mg IM ASDIRECTED PRN PRN Reason: Post Hemorrhage Misoprostol (Cytotec) 200 mcg PO ONETIME PRN PRN Reason: Post Hemorrhage Nalbuphine HCl (Nubain) 10 mg IVPUSH Q1H PRN PRN Reason: Pain (severe 7-10) Ondansetron HCl (Zofran) 4 mg IVPUSH Q4H PRN PRN Reason: Nausea Last Admin: 02/11/20 22:40 Dose: 4 mg Documented by: Sodium Chloride (Saline Flush) 10 ml FLUSH ASDIRECTED PRN PRN Reason: Keep Vein Open Sodium Chloride (Saline Flush) 2.5 ml FLUSH ASDIRECTED PRN PRN Reason: Keep Vein Open Sodium Chloride (Normal Saline) 10 ml IV ASDIRECTED PRN PRN Reason: IV Use Sterile Water (Sterile Water For Irrigation) 1,000 ml IRR ASDIRECTED PRN PRN Reason: delivery - Exam General: Alert, Oriented, Cooperative, No Acute Distress Lungs: Normal Respiratory Effort Cardiovascular: Regular Rate, Regular Rhythm GI/Abdominal Exam: Soft, Non-Tender (Female) Exam: Normal External Exam Back Exam: Normal Inspection Extremities: Normal Inspection, Normal Capillary Refill Skin: Warm, Dry, Intact Neurological: No New Focal Deficit, Normal Speech, Normal Tone Psy/Mental Status: Alert, Normal Affect, Normal Mood - Problem List & Annotations (1) Supervision of normal IUP (intrauterine ) in multigravida SNOMED Code(s): 888494742, 528573593, 150621120 Code(s): Z34.80 - ENCOUNTER FOR SUPRVSN OF NORMAL , UNSP TRIMESTER Status: Acute Priority: High Current Visit: Yes Qualifiers: Trimester: third trimester Qualified Code(s): Z34.83 - Encounter for supervision of other normal , third trimester (2) (spontaneous vaginal delivery) SNOMED Code(s): 520292825 Code(s): O80 - ENCOUNTER FOR FULL-TERM UNCOMPLICATED DELIVERY Status: Acute Priority: High Current Visit: Yes - Problem List Review Problem List Initiated/Reviewed/Updated: Yes - My Orders Last 24 Hours: My Active Orders 02/11/20 18:45 RPR (SYPHILIS SERO) W/ RFLX [REF] Routine 02/12/20 03:32 Patient Status [ADT] Routine May Shower [RC] ASDIRECTED Up ad Amber [RC] ASDIRECTED Vital Signs [RC] PER UNIT ROUTINE Acetaminophen [Tylenol Extra Strength] 1,000 mg PO Q4H PRN Acetaminophen [Tylenol Extra Strength] 500 mg PO Q4H PRN Benzocaine/Menthol [Dermoplast Pain Relief 20%-0.5% [place]] 78 gm TOP ASDIRECTED PRN Docusate Sodium [Colace] 100 mg PO BID PRN Ibuprofen [Motrin] 400 mg PO Q4H PRN Ibuprofen [Motrin] 800 mg PO Q6H PRN Lanolin [Lansinoh HPA] See Dose Instructions TOP ASDIRECTED PRN bisacodyL [Dulcolax] 10 mg RECTAL ONETIME PRN oxyCODONE 5 mg PO Q2H PRN witch [place] [Tucks] 1 pad TOP ASDIRECTED PRN Assess Lochia [WOMSER] Per Unit Routine Assess Uterine Involution [WOMSER] Per Unit Routine Peripheral IV Discontinue [OM.PC] Routine Resuscitation Status Routine 02/13/20 05:11 HEMOGLOBIN/HEMATOCRIT,HH [HEME] Timed - Plan Plan:: Admit A: presenting to L&D at 38 5/7 weeks (NICKIE: 02/20/20) reporting regular uterine contractions; O+, Rubella immune, GBS positive (NKDA); SVE 5cm/80%/-1 per nurse report; vertex presentation by Yohana P: Anticipate ; epidural PRN; Dr. Barone updated Delivery A: viable male; epidural for pain relief; APGARs 8/9; cord doubly clamped following cessation of pulsing, cut by grandmother of baby; baby to warmer for weight and measurements; weight: 7 lb 9 oz (3430 grams); placenta delivered grossly intact, barnett, 3VC; EBL 300 mL; perineum intact; pitocin to IVF; baby back to mom [id number]; mom and baby left in stable condition with nurse at bedside for assessment P: Routine plan of care; Dr. Barone updated.
--- NOTE | 2020-02-12 08:05 | PCM48HPAN ---
Post Anesthesia Note - EVALUATION WITHIN 48HRS OF ANESTHETIC Vital Signs in Normal Range: Yes Patient Participated in Evaluation: Yes Respiratory Function Stable: Yes Airway Patent: Yes Cardiovascular Function Stable: Yes Hydration Status Stable: Yes (Taking PO without difficulty) Pain Control Satisfactory: Yes (Reports adequate pain control) Nausea and Vomiting Control Satisfactory: Yes (Denies nausea) Mental Status Recovered: Yes - COMMENTS/OBSERVATIONS Free Text/Narrative:: Pt has ambulated to bathroom and reports full return of strength and sensation to BLE. Pt reports mild to moderate headache in right frontal region. Denies visual changes, dizziness, or auditory symptoms. HOB put in flat position, and pt did report it "takes the pressure off." Discussed possibility of PDPH with pt and RN. Discussed possible symptoms, and potential treatments (including epidural blood patch). Pt to report if symptoms worsen or become too uncomfortable, otherwise anesthesia will reassess later today.
--- NOTE | 2020-02-12 14:34 | PCM.SN.2 ---
- Free Text/Narrative Note: 02/12/20 reassessed at 1430. Pt reports relief from headache following tylenol this morning. Sitting up in bed holding baby. Reports feeling well, with satisfactory pain control.
--- NOTE | 2020-02-13 11:22 | PCM.DCSUM1 ---
Discharge Summary - Hospital Course Free Text/Narrative:: Sylwia is a 19 yo PPD1 S/P uncomplicated to term NBM. O pos, RI, GBS pos with ampicillin prophylaxis prior to . Patient has no complaints or concerns at this time. Patient is exclusively well, resting comfortably in bed with . Patient reports she is eating, voiding, ambulating independently and without difficulty. Patient denies any problems or concerns at this time except mild-moderate intermittent uterine cramping relieved with Tylenol and Ibuprofen. Patient reports moderate vaginal bleeding with no clots. Patient verbalizes her readiness to be discharged home today. Diagnosis: Stroke: No - Discharge Data Discharge Date: 02/13/20 Discharge Disposition: Home, Self-Care 01 Condition: Good - Referral to Home Health Primary Care Physician: Donna Penn NP - Discharge Diagnosis/Problem(s) (1) Lactating mother SNOMED Code(s): 905303925, [id number] ICD Code: Z39.1 - ENCOUNTER FOR CARE AND EXAMINATION OF LACTATING MOTHER Status: Acute Current Visit: Yes (2) (spontaneous vaginal delivery) SNOMED Code(s): 620094595 ICD Code: O80 - ENCOUNTER FOR FULL-TERM UNCOMPLICATED DELIVERY Status: Acute Priority: High Current Visit: Yes - Patient Instructions Diet: Usual Diet as Tolerated, Regular Diet as Tolerated, Drink 8-10+ Glasses/Day Activity: As Tolerated, No Strenuous Activities, Rest and Relax Today Driving: May Drive Today Showering/Bathing: May Shower Showering/Bathing, Other: Sitz baths for perineal comfort Notify Provider of: Fever, Increased Pain, Swelling and Redness, Drainage, Nausea and/or Vomiting - Discharge Plan *PRESCRIPTION DRUG MONITORING PROGRAM REVIEWED*: No *COPY OF PRESCRIPTION DRUG MONITORING REPORT IN PATIENT CORNELIO: No Prescriptions/Med Rec: Ibuprofen [Motrin] 800 mg PO Q8H PRN #90 tablet PRN Reason: Pain Home Medications: Home Meds Ibuprofen [Motrin] 800 mg PO Q8H PRN #90 tablet 02/13/20 [Rx] Oxygen Therapy Mode: Room Air - Discharge Summary/Plan Comment DC Time >30 min.: Yes Discharge Summary/Plan Comment: Hemodynamically stable, afebrile. Independent with ADLs, pain well controlled. Ibuprofen prescription sent to [facility]. Warning S/Ss, when to call for help discussed, no questions or concerns. F/U in office in 6 weeks for po stpartum visit or sooner if problem arise. - General Info Date of Service: 02/13/20 Admission Dx/Problem (Free Text: Patient Status Order with Admit Dx/Problem 02/11/20 18:33 Patient Status [ADT] Routine Admission Diagnosis/Problem Admission Diagnosis/Problem 02/11/20 19:01 presenting to L&D at 38 5/7 weeks (NICKIE: 02/20/20) reporting regular uterine contractions; O+, Rubella immune, GBS positive (NKDA); SVE 5cm/80%/-1 per nurse report; vertex presentation by George'louise 02/11/20 19:07 Functional Status: Reports: Pain Controlled, Tolerating Diet, Ambulating, Urinating - Review of Systems General: Reports: No Symptoms HEENT: Reports: No Symptoms Pulmonary: Reports: No Symptoms Cardiovascular: Reports: No Symptoms Gastrointestinal: Reports: No Symptoms Genitourinary: Reports: No Symptoms Musculoskeletal: Reports: No Symptoms Skin: Reports: No Symptoms Neurological: Reports: No Symptoms Psychiatric: Reports: No Symptoms - Patient Data Vitals - Most Recent: Last Vital Signs Temp 97.0 F 02/13/20 08:00 Pulse 65 02/13/20 08:00 Resp 17 02/13/20 08:00 BP 122/58 L 02/13/20 08:00 Pulse Ox 94 L 02/13/20 08:00 Weight - Most Recent: 198 lb Lab Results - Last 24 hrs: Laboratory Results - last 24 hr 02/13/20 Range/Units 06:15 Hgb 10.6 L (12.0-16.0) g/dL Hct 33.7 L (36.0-46.0) % Med Orders - Current: Current Medications Acetaminophen (Tylenol Extra Strength) 500 mg PO Q4H PRN PRN Reason: Pain Acetaminophen (Tylenol Extra Strength) 1,000 mg PO Q4H PRN PRN Reason: Pain Last Admin: 02/12/20 07:43 Dose: 1,000 mg Documented by: Benzocaine/Menthol (Dermoplast Pain Relief 20%-0.5% [place]) 78 gm TOP ASDIRECTED PRN PRN Reason: Perineal Comfort Measure Last Admin: 02/12/20 07:44 Dose: 1 canister Documented by: Bisacodyl (Dulcolax) 10 mg RECTAL ONETIME PRN PRN Reason: Constipation Docusate Sodium (Colace) 100 mg PO BID PRN PRN Reason: Constipation Emollient Ointment (Lansinoh Hpa) 0 gm TOP ASDIRECTED PRN PRN Reason: Sore Nipples Last Admin: 02/12/20 07:44 Dose: 7 gm Documented by: Ibuprofen (Motrin) 400 mg PO Q4H PRN PRN Reason: Pain Ibuprofen (Motrin) 800 mg PO Q6H PRN PRN Reason: Pain Last Admin: 02/12/20 20:07 Dose: 800 mg Documented by: Oxycodone HCl (Oxycodone) 5 mg PO Q2H PRN PRN Reason: Pain Witch Beronica (Tucks) 1 pad TOP ASDIRECTED PRN PRN Reason: comfort care Last Admin: 02/12/20 07:44 Dose: 1 tub Documented by: Discontinued Medications Butorphanol Tartrate (Stadol) 1 mg IVPUSH Q1H PRN PRN Reason: Pain Last Admin: 02/11/20 19:27 Dose: 1 mg Documented by: Carboprost Tromethamine (Hemabate Ds) 250 mcg IM ASDIRECTED PRN PRN Reason: Post Hemorrhage Fentanyl (Sublimaze) Confirm Administered Dose 100 mcg .ROUTE .STK-MED ONE Stop: 02/11/20 20:07 Last Admin: 02/12/20 20:29 Dose: Not Given Documented by: Oxytocin/Sodium Chloride (Oxytocin 30 Unit/500 Ml-Ns) 30 unit in 500 mls @ 999 mls/hr IV TITRATE [facility] Last Admin: 02/12/20 03:20 Dose: 999 mls/hr Documented by: Tranexamic Acid 1,000 mg/ (Sodium Chloride) 110 mls @ 660 mls/hr IV ONETIME PRN PRN Reason: Bleeding Ampicillin Sodium 2 gm/ Sodium (Chloride) 100 mls @ 200 mls/hr IV ONETIME ONE Stop: 02/11/20 19:29 Last Admin: 02/11/20 19:28 Dose: 200 mls/hr Documented by: Ampicillin Sodium 1 gm/ Sodium (Chloride) 50 mls @ 100 mls/hr IV Q4H [facility] Last Admin: 02/12/20 00:05 Dose: 100 mls/hr Documented by: Lactated Ringer's (Ringers, Lactated) 1,000 mls @ 150 mls/hr IV ASDIRECTED PATRIA Last Admin: 02/11/20 21:16 Dose: 125 mls/hr Documented by: Ropivacaine (Naropin 0.2%) Confirm Administered Dose 100 mls @ as directed .ROUTE .STK-MED ONE Stop: 02/11/20 20:07 Lidocaine HCl (Xylocaine 1%) 50 ml INJECT ONETIME PRN PRN Reason: Laceration repair Methylergonovine Maleate (Methergine) 0.2 mg IM ASDIRECTED PRN PRN Reason: Post Hemorrhage Misoprostol (Cytotec) 200 mcg PO ONETIME PRN PRN Reason: Post Hemorrhage Nalbuphine HCl (Nubain) 10 mg IVPUSH Q1H PRN PRN Reason: Pain (severe 7-10) Ondansetron HCl (Zofran) 4 mg IVPUSH Q4H PRN PRN Reason: Nausea Last Admin: 02/11/20 22:40 Dose: 4 mg Documented by: Sodium Chloride (Saline Flush) 10 ml FLUSH ASDIRECTED PRN PRN Reason: Keep Vein Open Sodium Chloride (Saline Flush) 2.5 ml FLUSH ASDIRECTED PRN PRN Reason: Keep Vein Open Sodium Chloride (Normal Saline) 10 ml IV ASDIRECTED PRN PRN Reason: IV Use Sterile Water (Sterile Water For Irrigation) 1,000 ml IRR ASDIRECTED PRN PRN Reason: delivery - Exam General: Reports: Alert, Oriented, Cooperative, No Acute Distress HEENT: Reports: Pupils Equal, Pupils Reactive, Mucous Membr. Moist/[place] Neck: Reports: Supple Lungs: Reports: Clear to Auscultation, Normal Respiratory Effort Cardiovascular: Reports: Regular Rate, Regular Rhythm GI/Abdominal Exam: Normal Bowel Sounds, Soft, Non-Tender, No Organomegaly, No Distention (Female) Exam: Normal External Exam, Enlarged Uterus ( uterus, firm U+1), Vaginal Bleeding (Moderate rubra lochia, no clots) Rectal (Female) Exam: Deferred Back Exam: Reports: Normal Inspection, Full Range of Motion Extremities: Normal Inspection, Normal Range of Motion, Non-Tender, No Pedal Edema, Normal Capillary Refill Skin: Reports: Warm, Dry, Intact Neurological: Reports: No New Focal Deficit Psy/Mental Status: Reports: Alert, Normal Affect, Normal Mood
== END 2020-02-13 12:45 | disposition home or self-care (01) | DRG 807 ==
LOC: MW.OBCHECK 18:21 → MW.OB 18:22 → MW.OBCHECK 18:33 → OBSVTOIN 02-12 03:16 → MW.OB 02-12 05:44
PROVIDERS: ADMIT Obstetrics & Gynecology; ATTEND Obstetrics & Gynecology
PROC: 10E0XZZ Delivery of Products of Conception, External Approach (ICD-10-PCS; principal; 2020-02-12)
PROC: 10907ZC Drainage of Amniotic Fluid, Therapeutic from Products of Conception, Via Natural or Artificial Opening (ICD-10-PCS; 2020-02-12)
PROC: 3E0R3BZ Introduction of Anesthetic Agent into Spinal Canal, Percutaneous Approach (ICD-10-PCS; 2020-02-12)
PROC: 00HU33Z Insertion of Infusion Device into Spinal Canal, Percutaneous Approach (ICD-10-PCS; 2020-02-12)
DX: O99.824 Streptococcus B carrier state complicating childbirth (principal); Z37.0 Single live birth; Z3A.38 38 weeks gestation of pregnancy; O99.214 Obesity complicating childbirth; E66.9 Obesity, unspecified; Z20.828 Contact with and (suspected) exposure to other viral communicable diseases; Z98.890 Other specified postprocedural states
CPT/HCPCS: 36415; 51702; 59025; 59409; 85014; 85018; 85027; 86592; 86850; 86900; 86901; A9270-GY; J0290; J0595; J2405; J2590; J2795; J3010; J7050; J7120; U0002

== ENCOUNTER 2021-06-30 03:28 | Emergency (ER) | payer MEDICAID ==
[2021-06-30] MEDS ORDERED: Sodium Chloride 0.9% 1,000 ML IV ONE (03:36)
[2021-06-30] MEDS ORDERED: Morphine 4 MG/ML VIAL IVPUSH ONE (03:36)
[2021-06-30] MEDS ORDERED: Ondansetron 4 MG/2 ML SDV IVPUSH ONE (03:36)
[2021-06-30] MEDS ORDERED: Pantoprazole 40 MG in Sodium Chloride 0.9% 10 ML IVPUSH ONE (03:37)
[2021-06-30] MEDS ORDERED: Alum Hydro/Mag Hydro/Simeth XS 15 ML, Lidocaine 2% 5 ML PO ONE ×2 (03:38)
[2021-06-30] MEDS ORDERED: Metoclopramide 10 MG/2 ML SDV IVPUSH ONE (04:02)
[2021-06-30] MEDS ORDERED: diphenhydrAMINE 50 MG/ML SDV IVPUSH ONE (04:02)
[2021-06-30 04:08] LABS: BLOOD UREA NITROGEN,BUN 16 mg/dL (7.0-18.0); CARBON DIOXIDE,CO2 25.7 mmol/L (21.0-32.0); CHLORIDE,CL 103 mmol/L (98-107); GLUCOSE RANDOM 150 mg/dL (74-106); LIPASE 47 U/L (73-393); POTASSIUM,K 3.9 mmol/L (3.5-5.1); SODIUM,NA 140 mmol/L (136-145)
[2021-06-30] MEDS ORDERED: Iopamidol 755 MG/ML 500 ML Multipack Bottle IVPUSH STA (04:30)
== END 2021-06-30 05:26 | disposition home or self-care (01) ==
LOC: MW.ED 03:28
DX: K52.9 Noninfective gastroenteritis and colitis, unspecified (principal)
CPT/HCPCS: 36415; 74177; 80053; 83690; 83735; 84703; 85025; 96374; 96375; 99284; A9270; C9113; J1200; J2270; J2405; J2765; J3490; J7030; Q9967

== ENCOUNTER 2021-06-30 17:16 | Emergency (ER) | payer MEDICAID | END 2021-06-30 19:08 | disposition left against medical advice (07) | LOC: MW.ED 17:16 | DX: Z53.21 Procedure and treatment not carried out due to patient leaving prior to being seen by health care provider (principal) ==

== ENCOUNTER 2022-05-26 06:33 | Emergency (ER) | payer MEDICAID ==
[2022-05-26] MEDS ORDERED: Dexamethasone 10 MG/ML SDV PO STA (07:03)
[2022-05-26 07:38] LABS: CORONAVIRUS COVID-19 NAA NEGATIVE (NEGATIVE); INFLUENZA A NAA NEGATIVE (NEGATIVE); INFLUENZA B NAA NEGATIVE (NEGATIVE)
== END 2022-05-26 08:03 | disposition home or self-care (01) ==
LOC: MW.ED 06:33
DX: J02.9 Acute pharyngitis, unspecified (principal); H66.91 Otitis media, unspecified, right ear; E66.9 Obesity, unspecified; Z68.21 Body mass index [BMI] 21.0-21.9, adult; Z20.822 Contact with and (suspected) exposure to COVID-19
CPT/HCPCS: 0240U; 87651; 99284; J8540; 99283

== ENCOUNTER 2024-08-04 11:31 | Emergency (ER) | payer MEDICAID | END 2024-08-04 12:52 | disposition home or self-care (01) | LOC: MW.ED 11:31 | DX: K02.9 Dental caries, unspecified (principal); S02.5XXA Fracture of tooth (traumatic), initial encounter for closed fracture; X50.9XXA Other and unspecified overexertion or strenuous movements or postures, initial encounter | CPT/HCPCS: 99282 ==